=== PATIENT | female | born 1960 | race African-American/Black ===

== ENCOUNTER → 2016-08-20 | Day surgery (SDC) | payer BC ==
--- NOTE | 2016-08-23 15:30 | PATH ---
Surgical Pathology Report Patient Name: VIRGIL BLANDON [facility]. Rec. #: [id number] /Age/Gender: 1960 (Age: 56) / F Account: [id number] Location: MAMMOGRAPHY Taken: 08/20/2016 Received: 08/20/2016 Reported: 08/23/2016 Physicians: Janet Carrion Specimen(s) Received A: BREAST CORE BIOPSY LEFT 4:00 RETROAREOLAR B: BREAST CORE BIOPSY RIGHT 6:00 RETROAREOLAR Clinical History Ultrasound findings: Probably benign Final Diagnosis A. BREAST, LEFT, 4:00 RETROAREOLAR, CORE BIOPSY: BENIGN BREAST TISSUE SHOWING FIBROADENOMATOID CHANGE. B. 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 Electronically Signed Leslie Marquez M.D. Gross Description A. Received in formalin labeled "left breast 4:00 retro," are 4 alonzo-yellow, cylindrical portions of fibroadipose tissue ranging from 0.2-1.2 cm in length and averaging 0.1 cm in diameter. The specimens are submitted in toto in one cassette. B. Received in formalin labeled "right breast 6:00 retroareolar," is a 1.0 x 0.7 x 0.1 cm aggregate of multiple alonzo-yellow, irregular to cylindrical portions of fibroadipose tissue. The formalin is filtered and the specimen is entirely submitted in one cassette. Total formalin fixation time: Approximately 7 hours saudi/08/20/2016
== END | disposition home or self-care (01) ==
LOC: FRADUS-SUR 12:38
PROVIDERS: ATTEND Family Medicine
PROC: 0HBV3ZX Excision of Bilateral Breast, Percutaneous Approach, Diagnostic (ICD-10-PCS; principal; 2016-08-20)
DX: N60.11 Diffuse cystic mastopathy of right breast (principal); N60.81 Other benign mammary dysplasias of right breast; N64.89 Other specified disorders of breast; R92.8 Other abnormal and inconclusive findings on diagnostic imaging of breast
CPT/HCPCS: 19083; 19084; 87899; 88305-TC; A4648; G0204-TC